=== PATIENT | female | born 1955 | race Hispanic/Latino ===

== ENCOUNTER 2017-06-16 18:45 | Emergency (ER) | payer OTHER ==
[2017-06-16 18:45] VITALS: BMI 34.7
[2017-06-16 19:00] VITALS: TEMP 99.3
--- NOTE | 2017-06-16 20:01 | ED PDOC ---
Arrival/HPI - General Historian: Patient - History of Present Illness Time/Duration: Prior to Arrival, < week Symptom Course: Improving Severity Level: 4 <Joaquim Sarabia - Last Filed: 06/16/17 20:22> <Sy Landry - Last Filed: 06/16/17 20:32> - General Chief Complaint: Headache Time Seen by Provider: 06/16/17 18:47 - History of Present Illness Narrative History of Present Illness (Text): 06/16/17 19:56 61F hx of tobacco use and hypertension, COPD, presents to the ED with intermittent Left sided nosebleeds for two days. patient would blow their nose and would start bleeding. patient would subsequently see clots come out of the left nostril. Nose bleed would last less than 2minutes. Patient denies any trauma or being on any blood thinners. Denies recent sick contacts. Currently their is no active nosebleed. Denies fevers, chills, chest pain, shortness of breath, nausea, vomiting, diarrhea, changes in urinary or bowel habits, numbness/tingling in extremities. (Joaquim Sarabia) Past Medical History - Provider Review Nursing Documentation Reviewed: Yes - Travel History Have you recently traveled outside [place] w/in the past 3 mons?: No - Past History Past History: Non-Contributing - Infectious Disease Hx of Infectious Diseases: None - Tetanus Immunization Tetanus Immunization: Unknown - Cardiac Hx Cardiac Disorders: Yes (CAD) Hx Hypertension: Yes - Pulmonary Hx Respiratory Disorders: Yes Hx Chronic Obstructive Pulmonary Disease (COPD): Yes - Neurological Hx Neurological Disorder: No (CEREBRAL ANEURYSM) - HEENT Hx HEENT Disorder: (WEARS RX GLASSES) - Renal Hx Renal Disorder: No - Endocrine/Metabolic Hx Endocrine Disorders: No Hx Diabetes Mellitus Type 2: Yes - Hematological/Oncological Hx Blood Disorders: Yes (GI BLEED 04-20-14) - Integumentary Hx Dermatological Disorder: No - Musculoskeletal/Rheumatological Hx Musculoskeletal Disorders: No Hx Falls: No - Gastrointestinal Hx Gastrointestinal Disorders: Yes (gerd,HIATAL HERNIA,) Hx Gall Bladder Disease: Yes (CHOLECYSTECTOMY,) Hx Gastroesophageal Reflux: Yes - Genitourinary/Gynecological Hx Genitourinary Disorders: No - Psychiatric Hx Psychophysiologic Disorder: Yes Hx Anxiety: Yes Hx Depression: Yes Hx Emotional Abuse: No Hx Physical Abuse: No Hx Substance Use: No - Surgical History Hx Cholecystectomy: Yes - Anesthesia Hx Anesthesia Reactions: No - Suicidal Assessment Feels Threatened In Home Enviroment: No <Joaquim Sarabia - Last Filed: 06/16/17 20:22> Family/Social History - Physician Review Nursing Documentation Reviewed: Yes Family/Social History: Other (Non-contributory) Smoking Status: Heavy Smoker > 10 Cigarettes Daily Hx Alcohol Use: No Hx Substance Use: No Hx Substance Use Treatment: No <Joaquim Sarabia - Last Filed: 06/16/17 20:22> Allergies/Home Meds <Joaquim Sarabia - Last Filed: 06/16/17 20:22> <Sy Landry - Last Filed: 06/16/17 20:32> Allergies/Adverse Reactions: Allergies amoxicillin Allergy (Verified 06/16/17 19:06) RASH Home Medications: Home Meds Medication Instructions Recorded Confirmed Tiotropium [Spiriva] 18 mcg IH PRN PRN 09/07/11 06/16/17 ALPRAZolam [Xanax] 1 mg PO PRN PRN 06/16/17 06/16/17 Metoprolol Succinate [Toprol XL] 50 mg PO DAILY 06/16/17 06/16/17 Tramadol HCl/Acetaminophen 1 each PO PRN PRN 06/16/17 06/16/17 [Ultracet Tablet] Review of Systems - Physician Review All systems were reviewed & negative as marked: Yes - Review of Systems Constitutional: Normal Eyes: Vision Changes, Eye Pain ENT: Epistaxis (no current active bleeding) Respiratory: Cough. absent: Sputum Cardiovascular: Normal Gastrointestinal: Normal. absent: Abdominal Pain, Stool Changes Genitourinary Female: Normal Musculoskeletal: Normal Skin: Normal Neurological: Headache (intermittent headaches for more than a year) Endocrine: Normal <Joaquim Sarabia - Last Filed: 06/16/17 20:22> Physical Exam Vital Signs Reviewed: Yes Temperature: Afebrile Blood Pressure: Hypertensive Pulse: Regular Respiratory Rate: Normal Appearance: Positive for: Well-Appearing, Non-Toxic, Comfortable Pain Distress: None Mental Status: Positive for: Alert and Oriented X 3 - Systems Exam Head: Present: Atraumatic, Normocephalic. No: Tenderness, Swelling, Ecchymosis Pupils: Present: PERRL Conjunctiva: Present: Normal Mouth: Present: Moist Mucous Membranes Nose (External): Present: Atraumatic, Other (Dry in Left nostril. Right nostril WNL). No: Abrasion, Contusion, Laceration, Lesions Neck: Present: Normal Range of Motion Respiratory/Chest: Present: Clear to Auscultation, Wheezes (mild expiratory wheezing) Abdomen: No: Tenderness, Distention, Peritoneal Signs Upper Extremity: Present: Normal Inspection, NORMAL PULSES. No: Edema Lower Extremity: No: Normal Inspection, Edema Neurological: Present: GCS=15, Speech Normal Skin: Present: Warm, Normal Color. No: Rashes Psychiatric: Present: Alert, Oriented x 3 <Joaquim Sarabia - Last Filed: 06/16/17 20:22> Vital Signs Temp Pulse Resp BP Pulse Ox 06/16/17 18:56 99.3 F 96 H 18 151/67 H 97 Medical Decision Making <Joaquim Sarabia - Last Filed: 06/16/17 20:22> <Sy Landry - Last Filed: 06/16/17 20:32> ED Course and Treatment: 06/16/17 20:06 - apply bactracin ointment in each nostril for lubrication and maintain moisture - Extra-strength Tylenol for pain - discussed in detail with patient to use Vaseline, or bacitracin in nostril BID particularly in dry weather. Recommend to follow up with primary care physician for Hypertension follow up, an other chronic medical conditions. ( Joaquim Sarabia) Patient Seen With Resident: In agreement with resident note which contains more details about the patient. Patient was seen and evaluated with resident. Came up with plan and treatment together. (Sy Landry) - Medication Orders Current Medication Orders: Discontinued Medications Acetaminophen (Tylenol 325mg Tab) 975 mg PO STAT STA Stop: 06/16/17 19:46 Last Admin: 06/16/17 20:20 Dose: 975 mg - PA / QUALITY ASSURANCE TECHNICIAN / Resident Statement / has reviewed & agrees with the documentation as recorded. / has examined the patient and agrees with the treatment plan. <Sy Landry - Last Filed: 06/16/17 20:32> Disposition/Present on Arrival - Present on Arrival Any Indicators Present on Arrival: No History of DVT/PE: No History of Uncontrolled Diabetes: No Urinary Catheter: No History of Decub. Ulcer: No History Surgical Site Infection Following: None - Disposition Have Diagnosis and Disposition been Completed?: Yes Disposition Time: 20:10 Patient Plan: Discharge <Jonathan Sarabiasan - Last Filed: 06/16/17 20:22> <Sy Landry - Last Filed: 06/16/17 20:32> - Disposition Diagnosis: Left-sided nosebleed Disposition: HOME/ ROUTINE Patient Problems: Current Active Problems Problem Status Onset Left-sided nosebleed Acute Condition: GOOD Additional Instructions: Smooth JakeBailey, thank you for letting us take care of you today. Your provider was Dr. White and Dr. Sarabia. You were treated for Intermittent nosebleeds. The emergency medical care you received today was directed at your acute symptoms. It may take several days for your symptoms to resolve. Apply Vaseline or bacitracin ointment in nostrils. Return to the Emergency Department if your symptoms worsen, do not improve, or if you have any other problems. Please contact your doctor to follow up on your chronic medical conditions. Bring any paperwork you were given at discharge with you along with any medications you are taking to your follow up visit. Our treatment cannot replace ongoing medical care by a primary care provider (PCP) outside of the emergency department. Thank you for allowing the [facility] team to be part of your care today. Referrals: Liam Joya MD [Primary Care Provider] - Follow up with primary Forms: [employer] (Turkmen)
[2017-06-16 20:59] VITALS: BP 142/70; PULSE 80; RESP 16; O2SAT 98
== END 2017-06-16 20:24 | disposition home or self-care (01) ==
LOC: ED 18:45
DX: R04.0 Epistaxis (principal)

== ENCOUNTER 2017-08-07 14:21 | Emergency (ER) | payer OTHER ==
[2017-08-07] MEDS ORDERED: Sodium Chloride 0.9% 1,000 ML IV STA ×3 (14:36→16:09)
[2017-08-07 14:42] VITALS: BMI 36.2
--- NOTE | 2017-08-07 14:46 | ED PDOC ---
Arrival/HPI - General Time Seen by Provider: 08/07/17 14:24 Historian: Patient, Family - History of Present Illness Narrative History of Present Illness (Text): 08/07/17 14:54 A 61 year old female, whose past medical history includes hypertension, COPD, hyperlipedema, anxiety, and a hiatal hernia, presents to the emergency department for hyperglycemia of a 551 reading. The patient states that recently she has been feeling polydipsia, polyuria, weakness, and dizziness. She denies any abdominal pain, fever, nausea, vomiting, or any other complaints at this time. Time/Duration: Prior to Arrival Symptom Onset: Gradual Quality: Other Severity Level: Mild Context: Home Past Medical History - Provider Review Nursing Documentation Reviewed: Yes - Past History Past History: Non-Contributing - Infectious Disease Hx of Infectious Diseases: None - Tetanus Immunization Tetanus Immunization: Unknown - Cardiac Hx Cardiac Disorders: Yes (CAD) Hx Hypertension: Yes - Pulmonary Hx Respiratory Disorders: Yes Hx Chronic Obstructive Pulmonary Disease (COPD): Yes - Neurological Hx Neurological Disorder: No (CEREBRAL ANEURYSM) - HEENT Hx HEENT Disorder: (WEARS RX GLASSES) - Renal Hx Renal Disorder: No - Endocrine/Metabolic Hx Endocrine Disorders: No Hx Diabetes Mellitus Type 2: Yes - Hematological/Oncological Hx Blood Disorders: Yes (GI BLEED 04-20-13) - Integumentary Hx Dermatological Disorder: No - Musculoskeletal/Rheumatological Hx Musculoskeletal Disorders: No Hx Falls: No - Gastrointestinal Hx Gastrointestinal Disorders: Yes (gerd,HIATAL HERNIA,) Hx Gall Bladder Disease: Yes (CHOLECYSTECTOMY,) Hx Gastroesophageal Reflux: Yes - Genitourinary/Gynecological Hx Genitourinary Disorders: No - Psychiatric Hx Psychophysiologic Disorder: Yes Hx Anxiety: Yes Hx Depression: Yes Hx Emotional Abuse: No Hx Physical Abuse: No Hx Substance Use: No - Surgical History Hx Cholecystectomy: Yes - Anesthesia Hx Anesthesia Reactions: No - Suicidal Assessment Feels Threatened In Home Enviroment: No Family/Social History - Physician Review Nursing Documentation Reviewed: Yes Family/Social History: No Known Family HX Smoking Status: Heavy Smoker > 10 Cigarettes Daily Hx Alcohol Use: No Hx Substance Use: No Hx Substance Use Treatment: No Allergies/Home Meds Allergies/Adverse Reactions: Allergies amoxicillin Allergy (Verified 08/08/17 12:06) RASH Home Medications: Home Meds Medication Instructions Recorded Confirmed ALPRAZolam [Xanax] 1 mg PO PRN PRN 06/16/17 08/08/17 Metoprolol Succinate [Toprol XL] 50 mg PO DAILY 06/16/17 08/08/17 Review of Systems - Physician Review All systems were reviewed & negative as marked: Yes - Review of Systems Constitutional: Other (hyperglycemia *551*) ENT: absent: Sinus Congestion Respiratory: absent: Cough Genitourinary Female: absent: Dysuria Neurological: Dizziness Endocrine: Polyuria, Polydipsia Physical Exam Vital Signs Temp Pulse Resp BP Pulse Ox 08/07/17 19:08 98.7 F 95 H 20 148/86 97 08/07/17 16:46 90 18 138/86 96 08/07/17 15:25 98.7 F 96 H 20 141/95 H 95 - Systems Exam Head: Present: Atraumatic, Normocephalic Pupils: Present: PERRL Extroacular Muscles: Present: EOMI Conjunctiva: Present: Normal Mouth: Present: Moist Mucous Membranes Neck: Present: Normal Range of Motion Respiratory/Chest: Present: Clear to Auscultation, Good Air Exchange. No: Respiratory Distress, Accessory Muscle Use Cardiovascular: Present: Regular Rate and Rhythm, Normal S1, S2. No: Murmurs Abdomen: No: Tenderness, Distention, Peritoneal Signs Back: Present: Normal Inspection Upper Extremity: Present: Normal Inspection. No: Cyanosis, Edema Lower Extremity: Present: Normal Inspection. No: Edema Neurological: Present: GCS=15, CN II-XII Intact, Speech Normal Skin: Present: Warm, Dry, Normal Color. No: Rashes Psychiatric: Present: Alert, Oriented x 3, Normal Insight, Normal Concentration Medical Decision Making ED Course and Treatment: 08/07/17 14:55 Impression: A 61 year old female with hyperglycemia. Differential Diagnosis included but are not limited to: DKA vs. hyperglycemia. Plan: -- VBG -- Chest X-ray -- IV Fluids -- Urinalysis -- Reassess and disposition Progress Notes: 08/07/17 18:33 Leaving Against Medical Advice (AMA): The patient is choosing to leave against medical advice. I have personally explained to the patient that choosing to do so may result in permanent bodily harm or . I have discussed at great length that without further evaluation and monitoring there may be unforeseen circumstances and/or deterioration causing permanent bodily harm or as a result of their choice. The patient is alert, oriented, and shows the mental capacity to make clear decisions regarding the patients health care at this time. The patient continues to wish to leave against medical advice. In light of the patients decision to leave against medical advice, follow-up has been arranged and the patient is aware of the importance to following up as instructed. The patient has been advised that they should return to the emergency room immediately if they change their mind at any time, or if their condition begins to change or worsen in any way. - Lab Interpretations Microbiology Results: Microbiology Results 08/07/17 15:05 Blood Blood Culture - Preliminary NO GROWTH AFTER 4 DAYS 08/07/17 14:50 Blood Blood Culture - Preliminary NO GROWTH AFTER 4 DAYS 08/07/17 14:50 Urine Urine Culture - Final No Growth (<1,000 CFU/ML) Lab Results: 08/07/17 14:50 08/07/17 17:30 Lab Results 08/07/17 18:43: POC Glucose (mg/dL) 299 H 08/07/17 17:30: Sodium 140, Chloride 101, Potassium 4.5, Carbon Dioxide 27, Anion Gap 16, BUN 15, Creatinine 0.5 L, Est GFR ( Amer) > 60, Est GFR ( Non-Af Amer) > 60, Random Glucose 351 H* D, Calcium 8.9 08/07/17 17:30: pO2 56 H, VBG pH 7.30 L, VBG pCO2 59.0, VBG HCO3 29.0 H, VBG Total CO2 30.8 H, VBG O2 Sat (Calc) 92.5 H, VBG Base Excess 1.2, VBG Potassium 4.5, Sodium 136.0, Chloride 104.0, Glucose 381 H, Lactate 1.8, FiO2 21.0, Venous Blood Potassium 4.5 08/07/17 17:25: POC Glucose (mg/dL) 285 H 08/07/17 16:07: POC Glucose (mg/dL) 382 H 08/07/17 14:50: POC Glucose (mg/dL) 394 H 08/07/17 14:50: Sodium 136, Chloride 95 L, Potassium 4.1, Carbon Dioxide 28, Anion Gap 17, BUN 15, Creatinine 0.6 L, Est GFR ( Amer) > 60, Est GFR ( Non-Af Amer) > 60, Random Glucose 560 H* D, Calcium 9.5, Magnesium 1.6 L, Total Bilirubin 0.6, AST 50 H, ALT 42, Alkaline Phosphatase 87, Total Protein 7.3, Albumin 4.4, Globulin 3.0, Albumin/Globulin Ratio 1.5 08/07/17 14:50: pO2 231 H, VBG pH 7.13 L*, VBG pCO2 53.0, VBG HCO3 17.6 L, VBG Total CO2 19.2 L, VBG O2 Sat (Calc) 100.2 H, VBG Base Excess -11.8 L, VBG Potassium 3.1 L, Sodium 141.0, Chloride 73.0 L, Glucose 490 H*, Lactate 2.6 H, FiO2 21.0, Venous Blood Potassium 3.1 L 08/07/17 14:50: Urine Color Yellow, Urine Appearance Clear, Urine pH 6.0, Ur Specific [place] 1.010, Urine Protein Negative, Urine Glucose (UA) >=1000, Urine Ketones Negative, Urine Blood Negative, Urine Nitrate Negative, Urine Bilirubin Negative, Urine Urobilinogen 0.2, Ur Leukocyte Esterase Negative 08/07/17 14:50: WBC 11.3 H, RBC 5.07, Hgb 15.4, Hct 45.5, MCV 89.7, MCH 30.4, MCHC 33.8, RDW 12.9, Plt Count 256, MPV 11.4 H, Gran % 77.7 H, Lymph % (Auto) 16.1 L, [place] % (Auto) 5.0, Eos % (Auto) 1.0 L, Baso % (Auto) 0.2, Gran # 8.80 H , Lymph # (Auto) 1.8, [place] # (Auto) 0.6, Eos # (Auto) 0.1, Baso # (Auto) 0.02 - RAD Interpretation Radiology Orders: 08/07/17 14:36 CHEST PORTABLE [RAD] Stat - Medication Orders Current Medication Orders: Discontinued Medications Sodium Chloride (Sodium Chloride 0.9%) 1,000 mls @ 999 mls/hr IV .Q1H1M STA Stop: 08/07/17 15:36 Last Admin: 08/07/17 15:14 Dose: 999 mls/hr eMAR Start Stop Document 08/07/17 15:14 (Rec: 08/07/17 15:14 [id number]) Intravenous Solution Start Date 08/07/17 Start Time 15:14 Sodium Chloride (Sodium Chloride 0.9%) 1,000 mls @ 999 mls/hr IV .Q1H1M STA Stop: 08/07/17 16:40 Last Admin: 08/07/17 16:25 Dose: 999 mls/hr eMAR Start Stop Document 08/07/17 16:25 (Rec: 08/07/17 16:25 [id number]) Intravenous Solution Start Date 08/07/17 Start Time 16:25 Sodium Chloride (Sodium Chloride 0.9%) 1,000 mls @ 999 mls/hr IV .Q1H1M STA Stop: 08/07/17 17:09 Last Admin: 08/07/17 17:10 Dose: 999 mls/hr eMAR Start Stop Document 08/07/17 17:10 (Rec: 08/07/17 17:10 [id number]) Intravenous Solution Start Date 08/07/17 Start Time 17:10 Insulin Human Regular (Humulin R) 6 units IVP STAT STA Stop: 08/07/17 16:09 Last Admin: 08/07/17 16:21 Dose: 6 units MAR Blood Glucose Document 08/07/17 16:21 (Rec: 08/07/17 16:22 [id number]) Blood Glucose Finger Stick Blood Glucose (70-120) 382 IVP Administration Document 08/07/17 16:21 (Rec: 08/07/17 16:22 [id number]) Charges for Administration # of IVP Administrations 1 - Scribe Statement The provider has reviewed the documentation as recorded by the Zeyad Berry Provider Scribe Attestation: All medical record entries made by the Scribe were at my direction and personally dictated by me. I have reviewed the chart and agree that the record accurately reflects my personal performance of the history, physical exam, medical decision making, and the department course for this patient. I have also personally directed, reviewed, and agree with the discharge instructions and disposition. Disposition/Present on Arrival - Present on Arrival Any Indicators Present on Arrival: No History of DVT/PE: No History of Uncontrolled Diabetes: No Urinary Catheter: No History Surgical Site Infection Following: None - Disposition Have Diagnosis and Disposition been Completed?: Yes Diagnosis: Uncontrolled diabetes mellitus Disposition: AGAINST MEDICAL ADVICE Disposition Time: 19:12 Patient Plan: Discharge Condition: IMPROVED Discharge Instructions (ExitCare): Type 2 Diabetes Additional Instructions: Ms Joseph, thank you for letting us take care of you today. Your provider was Dr. Sharma. You were treated for Hyperglycemia. The emergency medical care you received today was directed at your acute symptoms. If you were prescribed any medication, please fill it and take as directed. It may take several days for your symptoms to resolve. Return to the Emergency Department if your symptoms worsen, do not improve, or if you have any other problems. Please contact your doctor or call one of the physicians/clinics you have been referred to that are listed on the Patient Visit Information form that is included in your discharge packet. Bring any paperwork you were given at discharge with you along with any medications you are taking to your follow up visit. Our treatment cannot replace ongoing medical care by a primary care provider (PCP) outside of the emergency department. Thank you for allowing the [facility] team to be part of your care today. If you had an X-Ray or CT scan: A Radiologist will review the ED reading if any change in treatment is needed we will contact you. If you had a blood, urine, or wound culture: It will take several days for the results, if any change in treatment is needed we will contact you. If you had an STI test: It will take 48 hours for the results. Please call after 1 week if you have not heard back. Referrals: Liam Joya MD [Primary Care Provider] - Follow up with primary Forms: [employer] (Bangladeshi), WORK NOTE
--- NOTE | 2017-08-07 15:01 | RAD ---
HISTORY: cough r/o pna COMPARISON: 05/08/2014 FINDINGS: LUNGS: No focal infiltrate is seen. Mild interstitial changes cannot be excluded, although a portion of this may be related to overlying soft tissue. PLEURA: No significant pleural effusion identified, no pneumothorax apparent. CARDIOVASCULAR: Heart is top-normal in size. OSSEOUS STRUCTURES: No significant abnormalities. VISUALIZED UPPER ABDOMEN: Normal. OTHER FINDINGS: None. IMPRESSION: No active disease.
[2017-08-07 15:21] LABS: VENOUS BLOOD GAS BASE EXCESS -11.8 mmol/L (0.0-2.0); VENOUS BLOOD GAS PO2 231 mm/Hg (30-55)
[2017-08-07 15:25] VITALS: TEMP 98.7
[2017-08-07 15:28] LABS: BASO # 0.02 K/mm3 (0.0-2.0); BASO % 0.2 % (0.0-3.0); EOS # 0.1 (0.0-0.7); GRAN # 8.8 (1.4-6.5); GRAN % 77.7 % (50.0-68.0); HEMOGLOBIN 15.4 g/dL (12.0-16.0); LYMPH # 1.8 (1.2-3.4); LYMPH % 16.1 % (22.0-35.0); MEAN CELL VOLUME 89.7 fl (80.0-105.0); MEAN CORPUSCULAR HEMOGLOBIN 30.4 pg (25.0-35.0); MEAN CORPUSCULAR HGB CONC 33.8 g/dl (31.0-37.0); MEAN PLATELET VOLUME 11.4 fl (7.0-11.0); MONO # 0.6 (0.1-0.6); RBC 5.07 10^6/uL (3.5-6.1); RED CELL DISTRIBUTION WIDTH 12.9 % (11.5-14.5); WHITE BLOOD COUNT 11.3 10^3/ul (4.5-11.0)
[2017-08-07 15:34] LABS: URINE BILIRUBIN NEGATIVE (NEGATIVE); URINE BLOOD NEGATIVE (NEGATIVE); URINE GLUCOSE (UA) >=1000 mg/dL (NEGATIVE); URINE LEUKOCYTE ESTERASE NEGATIVE Leu/uL (NEGATIVE); URINE PROTEIN NEGATIVE mg/dL (<30 mg/dL); URINE UROBILINOGEN 0.2 E.U./dL (<1 E.U./dL)
[2017-08-07 15:38] LABS: URINE APPEARANCE CLEAR (CLEAR); URINE COLOR YELLOW (YELLOW); VENOUS BLOOD PH 7.13 (7.32-7.43)
[2017-08-07 15:55] LABS: ALB/GLOB RATIO 1.5 (1.1-1.8); ALBUMIN 4.4 g/dL (3.0-4.8); ALT/SGPT 42 U/L (7-56); AST/SGOT 50 U/L (14-36); BLOOD UREA NITROGEN 15 mg/dL (7-21); CALCIUM 9.5 mg/dL (8.4-10.5); GFR AFRICAN-AMERICAN > 60; GFR NON-AFRICAN AMERICAN > 60
[2017-08-07] MEDS ORDERED: Insulin Regular 1 UNITS/0.01 ML ML IVP STA ×2 (16:04→16:08)
[2017-08-07 17:40] LABS: VENOUS BLOOD GAS BASE EXCESS 1.2 mmol/L (0.0-2.0); VENOUS BLOOD GAS PO2 56 mm/Hg (30-55)
[2017-08-07 17:57] LABS: BLOOD UREA NITROGEN 15 mg/dL (7-21); CALCIUM 8.9 mg/dL (8.4-10.5); GFR AFRICAN-AMERICAN > 60; GFR NON-AFRICAN AMERICAN > 60
[2017-08-07 19:09] VITALS: BP 148/86; PULSE 95; RESP 20; O2SAT 97
== END 2017-08-07 18:50 | disposition left against medical advice (07) ==
LOC: ED 14:21
DX: E11.65 Type 2 diabetes mellitus with hyperglycemia (principal); F17.210 Nicotine dependence, cigarettes, uncomplicated; I10 Essential (primary) hypertension; E78.5 Hyperlipidemia, unspecified; J44.9 Chronic obstructive pulmonary disease, unspecified
CPT/HCPCS: 71045; 80053; 81003; 82803; 82948; 83735; 85025; 87040; 87086; 96374; 99284; J7040

== ENCOUNTER 2017-08-08 11:53 | Observation (INO) | payer OTHER ==
[2017-08-08 11:53] VITALS: BMI 36.2
[2017-08-08] MEDS ORDERED: Sodium Chloride 0.9% 1,000 ML IV STA (11:57)
--- NOTE | 2017-08-08 12:36 | ED PDOC ---
Arrival/HPI - General Chief Complaint: Headache Time Seen by Provider: 08/08/17 11:55 Historian: Patient - History of Present Illness Narrative History of Present Illness (Text): 08/08/17 11:53 A 61 year old female, whose past medical history includes diabetes, hypertension , COPD, hyperlipidemia, anxiety, continued tobacco use, and hiatal hernia, presents to the emergency department complaining of hyperglycemia. Patient was here yesterday for similar complaint, however left against medical advice because she wanted to go and smoke a cigarette. Patient reports also experiencing generalized weakness and occasional dizziness, but denies any current corporeal pain, fever, chills, or any other complaints at this time. Also, patient is non-compliant with anti-hyperglycemic medications for months. Patient states she is willing to remain in the hospital today. No PMD Past Medical History - Provider Review Nursing Documentation Reviewed: Yes - Past History Past History: Non-Contributing - Infectious Disease Hx of Infectious Diseases: None - Tetanus Immunization Tetanus Immunization: Unknown - Reproductive Menopause: Yes - Cardiac Hx Cardiac Disorders: Yes (CAD) Hx Hypertension: Yes - Pulmonary Hx Respiratory Disorders: Yes Hx Chronic Obstructive Pulmonary Disease (COPD): Yes - Neurological Hx Neurological Disorder: No (CEREBRAL ANEURYSM) - HEENT Hx HEENT Disorder: (WEARS RX GLASSES) - Renal Hx Renal Disorder: No - Endocrine/Metabolic Hx Endocrine Disorders: No Hx Diabetes Mellitus Type 2: Yes - Hematological/Oncological Hx Blood Disorders: Yes (GI BLEED 04-20-14) - Integumentary Hx Dermatological Disorder: No - Musculoskeletal/Rheumatological Hx Musculoskeletal Disorders: No Hx Falls: No - Gastrointestinal Hx Gastrointestinal Disorders: Yes (gerd,HIATAL HERNIA,) Hx Gall Bladder Disease: Yes (CHOLECYSTECTOMY,) Hx Gastroesophageal Reflux: Yes - Genitourinary/Gynecological Hx Genitourinary Disorders: No - Psychiatric Hx Psychophysiologic Disorder: Yes Hx Anxiety: Yes Hx Depression: Yes Hx Emotional Abuse: No Hx Physical Abuse: No Hx Substance Use: No - Surgical History Hx Cholecystectomy: Yes - Anesthesia Hx Anesthesia: Yes Hx Anesthesia Reactions: No Hx Malignant Hyperthermia: No - Suicidal Assessment Feels Threatened In Home Enviroment: No Family/Social History - Physician Review Nursing Documentation Reviewed: Yes Family/Social History: No Known Family HX Smoking Status: Heavy Smoker > 10 Cigarettes Daily Hx Alcohol Use: No Hx Substance Use: No Hx Substance Use Treatment: No Allergies/Home Meds Allergies/Adverse Reactions: Allergies amoxicillin Allergy (Verified 08/08/17 12:06) RASH Home Medications: Home Meds Medication Instructions Recorded Confirmed ALPRAZolam [Xanax] 1 mg PO PRN PRN 06/16/17 08/08/17 Metoprolol Succinate [Toprol XL] 50 mg PO DAILY 06/16/17 08/08/17 Review of Systems - Physician Review All systems were reviewed & negative as marked: Yes - Review of Systems Constitutional: Other (generalized weakness). absent: Fevers, Night Sweats Neurological: Dizziness (occasional) Physical Exam Vital Signs Reviewed: Yes Vital Signs Temp Pulse Resp BP Pulse Ox 08/08/17 16:34 78 147/90 08/08/17 11:46 98.3 F 90 18 178/101 H 95 Temperature: Afebrile Blood Pressure: Hypertensive Pulse: Regular Respiratory Rate: Normal Appearance: Positive for: Well-Appearing, Other (obese) Pain Distress: None Mental Status: Positive for: Alert and Oriented X 3 Finger Stick Blood Glucose: 302 - Systems Exam Head: Present: Atraumatic, Normocephalic Pupils: Present: PERRL Extroacular Muscles: Present: EOMI Conjunctiva: Present: Normal Mouth: Present: Moist Mucous Membranes Neck: Present: Normal Range of Motion Respiratory/Chest: Present: Clear to Auscultation, Good Air Exchange. No: Respiratory Distress, Accessory Muscle Use Cardiovascular: Present: Regular Rate and Rhythm, Normal S1, S2. No: Murmurs Abdomen: No: Tenderness, Distention, Peritoneal Signs Back: Present: Normal Inspection Upper Extremity: Present: Normal Inspection. No: Cyanosis, Edema Lower Extremity: Present: Normal Inspection. No: Edema Neurological: Present: GCS=15, CN II-XII Intact, Speech Normal Skin: Present: Warm, Dry, Normal Color. No: Rashes Psychiatric: Present: Alert, Oriented x 3, Normal Insight, Normal Concentration Medical Decision Making ED Course and Treatment: 08/08/17 11:57 Impression: 61 year old female with generalized weakness, occasional dizziness, and hyperglycemia. Physical exam is unremarkable except that patient is obese. Plan: -- EKG -- Labs -- Venous Blood Gas -- Urine Culture -- IV Fluids -- Urinalysis -- Reassess and disposition Prior Visits: Notes and results from previous visits were reviewed. Patient was last seen in the emergency department on 08/07/2017 for hyperglycemia. Patient left ama. Progress Notes: - Lab Interpretations Lab Results: 08/08/17 13:10 08/08/17 13:10 Lab Results 08/08/17 13:10: pO2 98 H, VBG pH 7.36, VBG pCO2 49.0, VBG HCO3 27.7, VBG Total CO2 29.2 H, VBG O2 Sat (Calc) 99.4 H, VBG Base Excess 1.5, VBG Potassium 4.1, Sodium 135.0, Chloride 101.0, Glucose 341 H, Lactate 1.5, FiO2 21.0, Venous Blood Potassium 4.1 08/08/17 13:10: Sodium 137, Chloride 100, Potassium 4.1, Carbon Dioxide 27, Anion Gap 15, BUN 12, Creatinine 0.5 L, Est GFR ( Amer) > 60, Est GFR ( Non-Af Amer) > 60, Random Glucose 319 H*, Calcium 9.1, Total Bilirubin 0.8, AST 48 H, ALT 42, Alkaline Phosphatase 76, Total Protein 7.2, Albumin 4.3, Globulin 2.9, Albumin/Globulin Ratio 1.5, Lipase 115 08/08/17 13:10: PT 10.7, INR 0.93, APTT 27.8 08/08/17 13:10: WBC 12.1 H, RBC 4.93, Hgb 15.0, Hct 43.6, MCV 88.4, MCH 30.4, MCHC 34.4, RDW 12.9, Plt Count 244, MPV 10.9, Gran % 75.7 H, Lymph % (Auto) 20.2 L, Carter % (Auto) 3.1, Eos % (Auto) 0.8 L, Baso % (Auto) 0.2, Gran # 9.15 H , Lymph # (Auto) 2.4, Carter # (Auto) 0.4, Eos # (Auto) 0.1, Baso # (Auto) 0.02 08/08/17 11:40: POC Glucose (mg/dL) 302 H I have reviewed the lab results: Yes - Medication Orders Current Medication Orders: Sodium Chloride (Sodium Chloride 0.45%) 1,000 mls @ 100 mls/hr IV .Q10H MARK Last Admin: 08/08/17 16:34 Dose: 100 mls/hr eMAR Start Stop Document 08/08/17 16:34 MR (Rec: 08/08/17 16:34 MR [id number]) Intravenous Solution Start Date 08/08/17 Start Time 16:34 Insulin Human Lispro (Humalog Med) 0 units SC ACHS MARK PRN Reason: Protocol Metoprolol Succinate (Toprol Xl) 50 mg PO DAILY MARK Last Admin: 08/08/17 16:34 Dose: Not Given Non-Admin Reason: Patient Refused MAR Pulse and Blood Pressure Document 08/08/17 16:34 MR (Rec: 08/08/17 16:34 MR [id number]) Pulse Pulse Rate (60-90 beats/min) 78 Blood Pressure Blood Pressure (100/60-150/90 mm Hg) 147/90 Discontinued Medications Acetaminophen (Tylenol 325mg Tab) 650 mg PO STAT STA Stop: 08/08/17 14:06 Last Admin: 08/08/17 14:42 Dose: 650 mg MAR Pain/Vitals Document 08/08/17 14:42 MR (Rec: 08/08/17 14:42 MR [id number]) Pain Reassessment Is This A Pain ReAssessment? Yes Sleep Is patient sleeping during reassessment? No Presence of Pain Presence of Pain Yes Pain Scale Used Pain Scale Used Numeric Location Pain Location Body Transcription Specialist Description Constant Intensity 8 Scale Used Numeric Alleviating Factors Medication Sodium Chloride (Sodium Chloride 0.9%) 1,000 mls @ 999 mls/hr IV .Q1H1M STA Stop: 08/08/17 12:57 Last Admin: 08/08/17 13:13 Dose: 999 mls/hr eMAR Start Stop Document 08/08/17 13:13 MR (Rec: 08/08/17 13:14 MR [id number]) Intravenous Solution Start Date 08/08/17 Start Time 13:13 End Date 08/08/17 End time 14:13 Total Infusion Time 60 - Scribe Statement The provider has reviewed the documentation as recorded by the Zeyad Stephens Provider Scribe Attestation: All medical record entries made by the Scribe were at my direction and personally dictated by me. I have reviewed the chart and agree that the record accurately reflects my personal performance of the history, physical exam, medical decision making, and the department course for this patient. I have also personally directed, reviewed, and agree with the discharge instructions and disposition. Disposition/Present on Arrival - Present on Arrival Any Indicators Present on Arrival: No History of DVT/PE: No History of Uncontrolled Diabetes: No Urinary Catheter: No History of Decub. Ulcer: No History Surgical Site Infection Following: None - Disposition Have Diagnosis and Disposition been Completed?: Yes Diagnosis: Uncontrolled diabetes mellitus
[2017-08-08 13:22] LABS: VENOUS BLOOD GAS BASE EXCESS 1.5 mmol/L (0.0-2.0); VENOUS BLOOD GAS PO2 98 mm/Hg (30-55); VENOUS BLOOD PH 7.36 (7.32-7.43)
[2017-08-08 13:25] LABS: BASO # 0.02 K/mm3 (0.0-2.0); BASO % 0.2 % (0.0-3.0); EOS # 0.1 (0.0-0.7); EOS % 0.8 % (1.5-5.0); GRAN # 9.15 (1.4-6.5); GRAN % 75.7 % (50.0-68.0); LYMPH # 2.4 (1.2-3.4); LYMPH % 20.2 % (22.0-35.0); MEAN CELL VOLUME 88.4 fl (80.0-105.0); MEAN CORPUSCULAR HEMOGLOBIN 30.4 pg (25.0-35.0); MEAN CORPUSCULAR HGB CONC 34.4 g/dl (31.0-37.0); MEAN PLATELET VOLUME 10.9 fl (7.0-11.0); MONO # 0.4 (0.1-0.6); MONO % 3.1 % (1.0-6.0); RBC 4.93 10^6/uL (3.5-6.1); RED CELL DISTRIBUTION WIDTH 12.9 % (11.5-14.5); WHITE BLOOD COUNT 12.1 10^3/ul (4.5-11.0)
[2017-08-08 13:32] LABS: INR 0.93 (0.93-1.08); PARTIAL THROMBOPLASTIN TIME 27.8 Seconds (25.1-36.5); PROTHROMBIN TIME 10.7 SECONDS (9.4-12.5)
[2017-08-08 13:52] LABS: ALB/GLOB RATIO 1.5 (1.1-1.8); ALBUMIN 4.3 g/dL (3.0-4.8); ALT/SGPT 42 U/L (7-56); AST/SGOT 48 U/L (14-36); BLOOD UREA NITROGEN 12 mg/dL (7-21); CALCIUM 9.1 mg/dL (8.4-10.5); GFR AFRICAN-AMERICAN > 60; GFR NON-AFRICAN AMERICAN > 60; LIPASE 115 U/L (23-300)
[2017-08-08] MEDS: Insulin Lispro (humaLOG) MEDIUM Coverage SC SCH ×3 (16:25→21:36)
[2017-08-08] MEDS: Sodium Chloride 0.45% 1,000 ML IV SCH (16:34)
[2017-08-08] MEDS: Metoprolol Succinate 50 mg XL Tab PO SCH (16:34)
--- NOTE | 2017-08-08 20:14 | CARD ---
APPROVED REPORT EKG Measurement Heart [id number] <Conclusion> Normal sinus rhythm Normal ECG
[2017-08-09 00:04] VITALS: RESP 20
[2017-08-09] MEDS: Sodium Chloride 0.45% 1,000 ML IV SCH ×2 (01:45→04:58)
--- NOTE | 2017-08-09 04:19 | CON ---
DATE: 08/08/2017 ENDOCRINOLOGY CONSULTATION LOCATION: Room 377. HISTORY OF PRESENT ILLNESS: This is a 61-year-old female with known history of type 2 diabetes and hypertension apparently with poor adherence to her oral diabetic medications, presenting here with generalized body weakness and supervening dizziness and lightheadedness with episodic near syncopal attacks and is now being referred for diabetic evaluation and management. She admits to recent hyperglycemic accelerations and glucose levels over 400 mg/dL, but apparently was actually seen here a few days ago, was signed out against medical advise as noted because of insistence on continued nicotine use as noted. PAST MEDICAL HISTORY: History of type 2 diabetes, previously on metformin and glipizide medications, which she discontinued and has been lost to medical followup; history of hypertension and dyslipidemia; history of chronic obstructive lung disease with chronic bronchitis and emphysema; history of generalized anxiety and depression. FAMILY HISTORY: Positive for diabetes and hypertension. SOCIAL HISTORY: The patient admits to nicotine dependence and finishes one to two pack a day of cigarettes as noted. No other illicit drug use. REVIEW OF SYSTEMS: As mentioned above. Admits to generalized body weakness with easy fatigability and tiredness and suboptimal energy level. Also admits to increasing hypersomnolence and lethargy with bifrontal headaches and visual blurring as noted. No chest pains or palpitations, but admits to episodic shortness of breath, especially on exertion. Her oral intake has been variable with nausea, dyspepsia and vague upper abdominal pains. Also admits to marked polyuria, nocturia, polydipsia and about a 5-pound or so weight loss. PHYSICAL EXAMINATION: GENERAL: This is an overweight female in no apparent distress. VITAL SIGNS: Blood pressure of 150/90; pulse of 70 beats per minutes, regular; temperature 98; respirations 20; height is 6 feet 2 inches; weight is 198 pounds. HEENT: Head normocephalic. Eyes anicteric with pink conjunctivae. Funduscopy is not possible at this time. Ears, nose and throat otherwise normal. NECK: Supple. Thyroid gland is normal in size. No carotid bruits or any cervical adenopathy. CARDIOPULMONARY: Adynamic precordium. S1, S2 is rapid and regular. LUNGS: Clear to auscultation. ABDOMEN: Flat, soft with positive bowel sounds. EXTREMITIES: No peripheral edema. Pulses are +2 bilaterally. LABORATORY DATA: Her chemistries showed a BUN of 12, sodium 137, potassium 4.1, chloride 100, CO2 of 27, glucose 319 and creatinine 0.5. Her glucose levels have ranged from 240 to 302 mg/dL. ASSESSMENT: This is a 61-year-old female with uncontrolled and decompensated type 2 insulin-requiring diabetes presenting here with marked hyperglycemic accelerations and associated metabolic symptoms of poorly-controlled diabetes and is now being referred for diabetic evaluation and management. PLAN OF MANAGEMENT: We will initiate a combination of oral hypoglycemic therapy with basal insulin therapy as ordered and detailed orders have been given. We will add Levemir given as 16 units subcu at bedtime daily as ordered. We will add Januvia given as 100 mg daily, start tomorrow morning as ordered. We will also increase her metformin to 850 mg b.i.d. after meals as ordered. We will also increase the glipizide to 10 mg b.i.d. before meals as ordered. We will modify the coverage scale to obviate hypoglycemia and detailed orders have been given. We will continue the vigorous IV hydration to replenish the lost fluid and electrolytes as expected from the increased osmotic diuresis. We will reinforce diabetic education and dietary instructions at the time of this admission. We will follow with you. Bre Aponte MD
[2017-08-09 06:16] VITALS: BP 153/65; TEMP 98.6; O2SAT 98
[2017-08-09] MEDS ORDERED: Insulin Lispro (humaLOG) LOW Coverage SC SCH (07:30)
[2017-08-09 07:31] LABS: LDL CHOLESTEROL 99 mg/dL (0-129)
[2017-08-09 07:44] LABS: ALB/GLOB RATIO 1.4 (1.1-1.8); ALBUMIN 3.5 g/dL (3.0-4.8); ALT/SGPT 37 U/L (7-56); AST/SGOT 48 U/L (14-36); BLOOD UREA NITROGEN 12 mg/dL (7-21); GFR AFRICAN-AMERICAN > 60; GFR NON-AFRICAN AMERICAN > 60; HDL CHOLESTEROL 24 mg/dL (29-60); LIPASE 106 U/L (23-300)
[2017-08-09 09:15] VITALS: PULSE 72
[2017-08-09] MEDS: Metoprolol Succinate 50 mg XL Tab PO SCH (11:07)
--- NOTE | 2017-08-09 14:05 | PN ---
DATE: 08/09/2017 ENDOCRINOLOGY PROGRESS NOTE LOCATION: In room 377. SUBJECTIVE: This is a 61-year-old female with recent uncontrolled type 2 insulin-requiring diabetes, presenting here with marked hyperglycemic accelerations and generalized body weakness with dizziness and lightheadedness and episodic near-syncopal attack and is now being followed closely for metabolic management. Her glycemic levels are fluctuating, but improved and the latest glucose levels have ranged from 228-240 mg/dL. Her A1c is 11.2%, which is quite elevated and indicative of suboptimal metabolic control of her diabetic condition. Her latest chemistry showed a BUN of 12, sodium 139, potassium 3.9, chloride 102, CO2 of 29, glucose 259 and creatinine 0.5. ASSESSMENT: This is a 61-year-old female with uncontrolled and decompensated type 2 insulin-requiring diabetes with marked hyperglycemic accelerations, presenting here with hyperosmolar hyperglycemic state and dehydration. PLAN OF MANAGEMENT: As discussed with the patient and the staff, we will continue the combination of oral hypoglycemic drug therapy to allow for dose equilibration and keep her on the metformin given at 850 mg b.i.d. with glipizide given at a higher dose of 10 mg b.i.d. before meals as ordered. We will also add Januvia given as 100 mg once daily as ordered. We will continue the basal insulin, but titrate her Levemir to 20 units subcu at bedtime daily to start tonight. We will continue the low-dose correction scale using Humalog insulin as given. We will obtain serial chemistries and supplement accordingly as needed. We will also continue the IV hydration as ordered. We will follow. Bre Aponte MD
--- NOTE | 2017-08-09 14:44 | HP ---
HISTORY OF PRESENT ILLNESS: The patient is 61-year-old, very noncompliant diabetic, was in the ER on 08/07/2017 with complaint of feeling dizzy. She was found to have high blood sugar. She was advised to be admitted, but she signed against medical advice, then she got a call from her primary care doctor yesterday morning and she was advised to go to Emergency Room. Because of this high blood sugar, she could go into diabetic coma, she got scared and she was feeling dizzy, at the same time she came back to be admitted. Denies any nausea or vomiting. When she arrived in the ER, her blood sugar was 551. She does complain of being very thirsty and increased frequency of urination along with generalized weakness and dizziness. Denies any nausea or vomiting. PAST MEDICAL HISTORY: Significant for: 1. Hypertension. 2. COPD. 3. Hyperlipidemia. 4. Anxiety disorder. 5. History of hiatal hernia. 6. Non-insulin dependent diabetes, she does admit being noncompliant. She was recently given Trulicity, but she has not tried yet. ALLERGIES: SHE IS ALLERGIC TO AMOXICILLIN. MEDICATIONS AT HOME: She is only on metoprolol 50 mg daily, Xanax 1 mg at nighttime and she is recently given prescription of samples of Trulicity, she is to try it yet. Her [id number] was very involved, was at the bedside and she wants her to go home. She states she will take care of her blood sugar and will give her medication. PHYSICAL EXAMINATION: GENERAL: She is awake, alert, oriented, communicative. VITAL SIGNS: She is afebrile. Pulse 95, respirations 20, blood pressure 148/86. LUNGS: Bilateral good airflow. No rhonchi or crackle. HEART: S1 and S2 audible. ABDOMEN: Soft, nontender. No rebound, no guarding. NEUROLOGIC: The patient is awake, alert, oriented, communicative. LABORATORY DATA: WBC is 12.1, hemoglobin 15, hematocrit 43, platelets 44. PT 10.7, INR 0.93. Chemistry: Sodium 139, potassium 3.9, chloride 102, CO2 29, BUN 12, creatinine 0.5, blood sugar of 228, AST 48, ALT 37, her hemoglobin A1c is 11.2. ASSESSMENT: 1. Uncontrolled diabetes. 2. Hyperglycemia. 3. Hypertension. 4. Hyperlipidemia. 5. Anxiety disorder. PLAN: I wanted to give the patient oral hypoglycemic, she is adamant. She wants to go home. She said she only tried Trulicity and she had followup with her BMP and she does state that if she is not being discharged, she will leave against medical advice anyway, so she is being discharged to be followed by her primary care doctor. Cassia Jones MD
[2017-08-09] MEDS ORDERED: Insulin Detemir 100 units/ml Vial (Levemir) SC SCH (22:00)
== END 2017-08-09 12:46 | disposition home or self-care (01) ==
LOC: ED 11:53 → ERH 14:31 → 3RSO 17:19
PROVIDERS: ADMIT Internal Medicine; ATTEND Internal Medicine
DX: E11.65 Type 2 diabetes mellitus with hyperglycemia (principal); E11.00 Type 2 diabetes mellitus with hyperosmolarity without nonketotic hyperglycemic-hyperosmolar coma (NKHHC); E86.0 Dehydration; I10 Essential (primary) hypertension; E78.5 Hyperlipidemia, unspecified; F41.1 Generalized anxiety disorder; K44.9 Diaphragmatic hernia without obstruction or gangrene; J43.9 Emphysema, unspecified; F17.210 Nicotine dependence, cigarettes, uncomplicated; Z91.19 Patient's noncompliance with other medical treatment and regimen; Z79.4 Long term (current) use of insulin
CPT/HCPCS: 36415; 80053; 80061; 82803; 82948; 83036; 83690; 84443; 85025; 85610; 85730; 93005; 96360; 99285; G0378; J7030; J7040

== ENCOUNTER 2018-09-07 19:23 | Emergency (ER) | payer OTHER ==
[2018-09-07 19:23] VITALS: BMI 34.7
[2018-09-07 20:32] VITALS: TEMP 97.8
[2018-09-07] MEDS ORDERED: oxyCODONE 5 mg Immediate Release Tab PO STA (22:38)
[2018-09-08 02:31] VITALS: BP 135/78; PULSE 77; RESP 14; O2SAT 97
--- NOTE | 2018-09-08 05:14 | ED PDOC ---
Arrival/HPI - General Chief Complaint: Lower Extremity Problem/Injury Time Seen by Provider: 09/07/18 19:42 Historian: Patient - History of Present Illness Narrative History of Present Illness (Text): 09/08/18 05:11 62 year old female, whose past medical history includes hypertension, COPD, hyperlipedema, anxiety, and a hiatal hernia, presents to the emergency department with left knee pain, for 4 days. Patient informs she has chronic right knee pain, which she states she takes Ultram for. Patient informs taking Ultram for her left knee with little relief. Patient denies trauma or fall. Patient denies any fevers, chills, headache, dizziness, chest pain, shortness of breath, dyspnea on exertion, cough, abdominal pain, nausea, vomiting, diarrhea, back pain, neck pain, or any other complaints. 09/08/18 05:15 Time/Duration: < week Symptom Onset: Gradual Symptom Course: Unchanged Quality: Aching Activities at Onset: Light Context: Home Past Medical History - Provider Review Nursing Documentation Reviewed: Yes - Past History Past History: Non-Contributing - Infectious Disease Hx of Infectious Diseases: None - Tetanus Immunization Tetanus Immunization: Unknown - Cardiac Hx Cardiac Disorders: Yes (CAD) Hx Hypertension: Yes - Pulmonary Hx Respiratory Disorders: Yes Hx Chronic Obstructive Pulmonary Disease (COPD): Yes - Neurological Hx Neurological Disorder: No (CEREBRAL ANEURYSM) - HEENT Hx HEENT Disorder: (WEARS RX GLASSES) - Renal Hx Renal Disorder: No - Endocrine/Metabolic Hx Endocrine Disorders: No Hx Diabetes Mellitus Type 2: Yes - Hematological/Oncological Hx Blood Disorders: Yes (GI BLEED 04-20-14) - Integumentary Hx Dermatological Disorder: No - Musculoskeletal/Rheumatological Hx Musculoskeletal Disorders: No Hx Falls: No - Gastrointestinal Hx Gastrointestinal Disorders: Yes (gerd,HIATAL HERNIA,) Hx Gall Bladder Disease: Yes (CHOLECYSTECTOMY,) Hx Gastroesophageal Reflux: Yes - Genitourinary/Gynecological Hx Genitourinary Disorders: No - Psychiatric Hx Psychophysiologic Disorder: Yes Hx Anxiety: Yes Hx Depression: Yes Hx Emotional Abuse: No Hx Physical Abuse: No Hx Substance Use: No - Surgical History Hx Cholecystectomy: Yes - Anesthesia Hx Anesthesia: Yes Hx Anesthesia Reactions: No Hx Malignant Hyperthermia: No - Suicidal Assessment Feels Threatened In Home Enviroment: No Family/Social History - Physician Review Nursing Documentation Reviewed: Yes Family/Social History: No Known Family HX Smoking Status: Heavy Smoker > 10 Cigarettes Daily Hx Alcohol Use: No Hx Substance Use: No Hx Substance Use Treatment: No Allergies/Home Meds Allergies/Adverse Reactions: Allergies amoxicillin Allergy (Verified 08/08/17 12:06) RASH Home Medications: Home Meds Medication Instructions Recorded Confirmed ALPRAZolam [Xanax] 1 mg PO PRN PRN 06/16/17 08/08/17 Metoprolol Succinate XL [Toprol XL] 50 mg PO DAILY 06/16/17 08/08/17 Review of Systems - Physician Review All systems were reviewed & negative as marked: Yes - Review of Systems Constitutional: absent: Fevers, Night Sweats Respiratory: absent: SOB, Cough Cardiovascular: absent: Chest Pain, TILLMAN Gastrointestinal: absent: Abdominal Pain, Diarrhea, Nausea, Vomiting Musculoskeletal: Arthralgias (Left Knee). absent: Back Pain, Neck Pain Neurological: absent: Headache, Dizziness Physical Exam Vital Signs Reviewed: Yes Vital Signs Temp Pulse Resp BP Pulse Ox 09/07/18 23:05 77 14 135/78 97 09/07/18 20:30 97.8 F 82 16 167/72 H 95 Temperature: Afebrile Blood Pressure: Hypertensive Pulse: Regular Respiratory Rate: Normal Appearance: Positive for: Well-Appearing, Non-Toxic, Comfortable Pain Distress: None Mental Status: Positive for: Alert and Oriented X 3 - Systems Exam Head: Present: Atraumatic, Normocephalic Pupils: Present: PERRL Extroacular Muscles: Present: EOMI Conjunctiva: Present: Normal Mouth: Present: Moist Mucous Membranes Neck: Present: Normal Range of Motion Respiratory/Chest: Present: Clear to Auscultation, Good Air Exchange. No: Respiratory Distress, Accessory Muscle Use Cardiovascular: Present: Regular Rate and Rhythm, Normal S1, S2. No: Murmurs Abdomen: No: Tenderness, Distention, Peritoneal Signs Back: Present: Normal Inspection Upper Extremity: Present: Normal Inspection. No: Cyanosis, Edema Lower Extremity: Present: Normal Inspection, Tenderness (Diffuse left knee tend erness to the anterior aspect). No: Edema Neurological: Present: GCS=15, CN II-XII Intact, Speech Normal Skin: Present: Warm, Dry, Normal Color. No: Rashes Psychiatric: Present: Alert, Oriented x 3, Normal Insight, Normal Concentration Medical Decision Making ED Course and Treatment: 09/08/18 05:17 Impression: 62 year old female presents with left knee pain. Plan: -- Toradol -- X-ray left knee -- Oxycodone -- Reassess and disposition Prior Visits: Notes and results from previous visits were reviewed. Progress Notes: 09/08/18 05:18 - RAD Interpretation Radiology Orders: 09/07/18 21:14 KNEE WITH PATELLA LEFT 3 VIEW [RAD] Stat - Medication Orders Current Medication Orders: Discontinued Medications Ketorolac Tromethamine (Toradol) 60 mg IM STAT STA Stop: 09/07/18 21:15 Last Admin: 09/07/18 21:20 Dose: 60 mg MAR Pain Assessment Document 09/07/18 21:20 JOL (Rec: 09/08/18 02:27 [id number] Pain Reassessment Is this a pain reassessment? No Sleep Is patient sleeping during reassessment? No Presence of Pain Presence of Pain Yes Pain Scale Used Protocol: [facility] Pain Scale Used Numeric Location Left, Right or Bilateral Left Pain Location Body Site Knee Description Intensity of Pain at present 8 Pain Behavior Restlessness Facial Grimacing Aggravating Factors Walking IM Administration Charges Document 09/07/18 21:20 JOL (Rec: 09/08/18 02:27 [id number]) Injection Site MAR Injection Site Left Deltoid Charges for Administration # of IM Administrations 1 Oxycodone HCl (Oxycodone Immediate Release Tab) 5 mg PO STAT STA Stop: 09/07/18 22:39 Last Admin: 09/07/18 22:40 Dose: 5 mg MAR Pain Assessment Document 09/07/18 22:40 JOL (Rec: 09/08/18 02:28 [id number]) Pain Reassessment Is this a pain reassessment? Yes Sleep Is patient sleeping during reassessment? No Presence of Pain Presence of Pain Yes Pain Scale Used Protocol: PSCALES Pain Scale Used Numeric Location Left, Right or Bilateral Left Pain Location Body Site Knee Description Intensity of Pain at present 7 - Scribe Statement The provider has reviewed the documentation as recorded by the Scribe Mino Padilla All medical record entries made by the Scribe were at my direction and personally dictated by me. I have reviewed the chart and agree that the record accurately reflects my personal performance of the history, physical exam, medical decision making, and the department course for this patient. I have also personally directed, reviewed, and agree with the discharge instructions and disposition. Disposition/Present on Arrival - Present on Arrival Any Indicators Present on Arrival: No History of DVT/PE: No History of Uncontrolled Diabetes: No Urinary Catheter: No History of Decub. Ulcer: No History Surgical Site Infection Following: None - Disposition Have Diagnosis and Disposition been Completed?: Yes Diagnosis: Knee sprain Disposition: HOME/ ROUTINE Disposition Time: 10:25 Condition: GOOD Discharge Instructions (ExitCare): Knee Sprain (DC) Additional Instructions: MISTY GASPAR, thank you for letting us take care of you today. The emergency medical care you received today was directed at your acute symptoms. If you were prescribed any medication, please fill it and take as directed. It may take several days for your symptoms to resolve. Return to the Emergency Department if your symptoms worsen, do not improve, or if you have any other problems. Please contact your doctor or call one of the physicians/clinics you have been referred to that are listed on the Patient Visit Information form that is included in your discharge packet. Bring any paperwork you were given at discharge with you along with any medications you are taking to your follow up visit. Our treatment cannot replace ongoing medical care by a primary care provider outside of the emergency department. Thank you for allowing the [facility] team to be part of your care today. Follow up with your primary care doctor in 2-3 days for re-evaluation and further management. Prescriptions: oxyCODONE [oxyCODONE Immediate Release Tab] 5 mg PO Q6 PRN #15 tab PRN Reason: Pain, Severe (8-10) Referrals: [facility], [Non-Staff] - Follow up with primary Forms: [employer] ([place])
--- NOTE | 2018-09-08 10:56 | RAD ---
Date of service: 09/07/2018 PROCEDURE: Left Knee Radiographs. HISTORY: Pain. COMPARISON: None. TECHNIQUE: 3 views obtained. FINDINGS: BONES: Normal. No fracture. JOINTS: Normal. No osteoarthritis. JOINT EFFUSION: None. OTHER FINDINGS: None. IMPRESSION: No acute fracture or dislocation.
== END 2018-09-07 23:05 | disposition home or self-care (01) ==
LOC: ED 19:23
DX: S83.92XA Sprain of unspecified site of left knee, initial encounter (principal); X58.XXXA Exposure to other specified factors, initial encounter
CPT/HCPCS: 73562; 96372; 99283; J1885